=== PATIENT | male | born 1980 | race American Indian/Alaskan Native ===

== ENCOUNTER 2016-05-08 19:21 | Emergency (ER) | payer OTHER ==
[2016-05-08 20:56] LABS: Hematocrit 46.9 % (35.5-45.6); Hemoglobin 15.2 gm/dl (11.8-15.2); Mean Corpuscular HGB Conc 33 % (32-34); Mean Corpuscular Hemoglobin 27 pg (28-32); Mean Corpuscular Volume 83 fl (84-94); Platelet Count 292 K/mm3 (140-440); Red Blood Count 5.64 M/mm3 (3.65-5.03); Red Cell Distribution Width 13.7 % (13.2-15.2); White Blood Count 8.8 K/mm3 (4.5-11.0)
[2016-05-08 21:15] LABS: Alanine Aminotransferase 16 units/L (7-56); Albumin 4.6 g/dL (3.9-5); Alkaline Phosphatase 93 units/L (35-129); Amylase 87 units/L (27-131); Anion Gap 18 mmol/L; Bilirubin,Total 0.4 mg/dL (0.1-1.2); Blood Urea Nitrogen 9 mg/dL (9-20); Calcium 9.4 mg/dL (8.4-10.2); Carbon Dioxide 27 mmol/L (22-30); Chloride 98.7 mmol/L (98-107); Glucose 78 mg/dL (75-100); Lipase 34 units/L (13-60); Potassium 4.3 mmol/L (3.6-5.0); Sodium 139 mmol/L (137-145)
[2016-05-08 22:43] LABS: Bilirubin,Urine NEG (Negative); Blood,Urine SM (Negative); Ketones,Urine NEG (Negative); Leukocyte Esterase,Urine NEG (Negative); Mucus,Urine FEW /HPF; Nitrite,Urine NEG (Negative); Protein,Urine <15 mg/dL mg/dL (Negative); Urobilinogen,Urine < 2.0 mg/dL (<2.0)
[2016-05-09 07:45] VITALS: BP 135/78
[2016-05-09] MEDS ORDERED: NORCO 5/325 PO ONE (09:26)
[2016-05-09] MEDS ORDERED: PEPCID PO ONE (09:26)
[2016-05-09] MEDS ORDERED: ALUM-MAG HYDROX-SIMETH 200-200-20MG/5ML PO ONE (09:26)
[2016-05-09] MEDS ORDERED: LIDOCAINE VISCOUS 2% PO ONE (09:26)
--- NOTE | 2016-05-09 09:45 | Emergency Department Report ---
HPI - General Chief Complaint: Abdominal Pain Time Seen by Provider: 05/09/16 08:43 - HPI HPI: The patient is a 36-year-old male who presents for evaluation of abdominal pain and chest pain. The patient reports abdominal pain epigastric, and midsternal chest pain on and off for the past one week, constant since yesterday evening, burning in quality, 8/10 in severity, and is exacerbated after eating. The patient denies fever, neck pain, parasthesias, dyspnea, cough, hemoptysis, palpitations, dizziness, syncope, unilateral leg swelling, calf muscle pain. Patient also denies cocaine or other stimulant use, history of DVT or PE, recent immobilization, history of cancer, history of congenital heart disease, or history of sudden cardiac in family members. ED Past Medical Hx - Past Medical History Hx GERD: Yes Hx Psychiatric Treatment: Yes (depression) - Surgical History Past Surgical History?: No - Social History Smoking Status: Former Smoker Substance Use Type: None - Medications Home Medications: Home Medications Medication Instructions Recorded Confirmed Last Taken Type Cyclobenzaprine HCl [Flexeril 5 MG 5 mg PO Q8HR PRN #12 tab 05/09/16 Unknown Rx TAB] FLUoxetine [PROzac] 20 mg PO QDAY 05/09/16 05/09/16 Unknown History Famotidine [Pepcid] 20 mg PO BID #30 tablet 05/09/16 Unknown Rx Omeprazole Magnesium [PriLOSEC Otc] 20 mg PO QDAY #14 tablet. 05/09/16 Unknown Rx Ziprasidone [Geodon] 20 mg PO BID 05/09/16 05/09/16 Unknown History buPROPion SR [Wellbutrin Sr] 150 mg PO QAM 05/09/16 05/09/16 Unknown History busPIRone [Buspar] 10 mg PO QDAY 05/09/16 05/09/16 Unknown History ED Review of Systems ROS: Stated complaint: BILE REFLUX Other details as noted in HPI Constitutional: denies: fever ENT: denies: throat or neck pain Respiratory: denies: cough, shortness of breath Cardiovascular: reports chest pain Endocrine: denies unexplained weight loss or gain Gastrointestinal: reports abdominal pain, nausea Genitourinary: denies: dysuria Musculoskeletal: denies: leg swelling Skin: denies: rash Neurological: denies: headache Hematological/Lymphatic: denies: easy bleeding or easy bruising Psych: denies sadness or hopelessness Physical Exam - Physical Exam Vital Signs: Vital Signs 05/08/16 05/09/16 19:32 07:42 Temperature 98.2 F Pulse Rate 82 67 Respiratory 18 18 Rate Blood Pressure 142/91 Blood Pressure 135/78 [Left] O2 Sat by Pulse 100 100 Oximetry Physical Exam: General: well-nourished, well-developed, no acute distress Head: Normocephalic, atraumatic Eyes: normal sclera ENT: Mucous membranes are pink and moist Neck: trachea midline, neck supple, No neck stiffness, no cervical adenopathy Respiratory: Breath sounds equal bilaterally, no wheezing, rales, or rhonchi Cardio: S1 and S2 present, no murmurs, rubs, gallops, capillary refill is brisk Abdomen: Normoactive bowel sounds, soft abdomen, epigstric tenderness to palpation present, no rigidity, no guarding or rebound tenderness Chest WALL/Back: No tenderness to palpation of the chest wall, no CVA tenderness with percussion Musc: No pitting edema Skin: No rash Neuro: no facial drooping, normal speech Psych: Normal affect ED Course Vital Signs 05/08/16 05/09/16 19:32 07:42 Temperature 98.2 F Pulse Rate 82 67 Respiratory 18 18 Rate Blood Pressure 142/91 Blood Pressure 135/78 [Left] O2 Sat by Pulse 100 100 Oximetry ED Medical Decision Making - Lab Data Result diagrams: 05/08/16 20:36 05/08/16 20:36 - Medical Decision Making The patient was seen and examined by myself. The patient is placed on a cardiac cath rn and continuous pulse ox. On initial evaluation, the patient was found to be in no distress. Evaluation orders are placed. The patient is given a GI cocktail, a tablet of Pepcid, and tablet [place] for his pain. Lab results were non-concerning including WBC, hemoglobin, hematocrit, electrolytes , renal function, LFTs, lipase. The patient was reevaluated and reported that their symptoms were markedly improved. The patient is stable for discharge with outpatient follow-up. The patient is given follow-up and return instructions. The patient expressed understanding and agreed with the plan. The patient is discharged in stable condition. Critical care attestation.: If time is entered above; I have spent that time in minutes in the direct care of this critically ill patient, excluding procedure time. ED Disposition Clinical Impression: Abdominal pain, acute, epigastric, Acute chest pain Disposition: DISCHARGED TO HOME OR SELFCARE Is pt being admited?: No Does the pt Need Aspirin: No Condition: Stable Instructions: Chest Pain (ED), Gastroesophageal Reflux Disease (ED), Diet for Ulcers and Gastritis (ED) Referrals: PRIMARY CARE,MD [Primary Care Provider] - 3-5 Days Time of Disposition: 09:17
== END 2016-05-09 10:25 | disposition home or self-care (01) ==
LOC: ED 19:21
DX: R10.13 Epigastric pain (principal); R07.81 Pleurodynia; K21.9 Gastro-esophageal reflux disease without esophagitis; Z87.891 Personal history of nicotine dependence
CPT/HCPCS: 36415; 80053; 81001; 82150; 83690; 85027; 99284